=== PATIENT | female | born 1990 | race Hispanic/Latino ===

== ENCOUNTER 2018-06-03 10:33 | Emergency (ER) | payer OTHER ==
[2018-06-03 12:00] LABS: BASO % 0.3 % (0.0-1.0); EOS % 0.4 % (0.0-3.0); HEMATOCRIT 42.3 % (36.0-47.0); HEMOGLOBIN 14.9 g/dl (12.0-15.5); IMMATURE GRANULOCYTE % 0.2 % (0-3.0); LYMPH # 2.3 10^3/uL (1.5-6.5); LYMPH % 25.8 % (24.0-44.0); MEAN CORPUSCULAR HEMOGLOBIN 30.3 pg (27.0-33.0); MEAN CORPUSCULAR HGB CONC 35.2 g/dl (32.0-36.5); MEAN CORPUSCULAR VOLUME 86.2 fl (80.0-96.0); MONO # 0.3 10^3/uL (0.0-0.8); MONO % 3.4 % (0.0-5.0); NEUTROPHILS # 6.3 10^3/uL (1.8-7.7); NEUTROPHILS % 69.9 % (36.0-66.0); PLATELET COUNT, AUTOMATED 245 10^3/uL (150-450); RED BLOOD COUNT 4.91 10^6/uL (4.00-5.40)
[2018-06-03 12:13] LABS: D-DIMER QUANT 404.7 ng/ml (<500)
[2018-06-03 12:35] LABS: ANION GAP 9 MEQ/L (8-16); BLOOD UREA NITROGEN 7 MG/DL (7-18); CALCIUM LEVEL 9.2 MG/DL (8.5-10.1); CARBON DIOXIDE LEVEL 26 MEQ/L (21-32); CHLORIDE LEVEL 103 MEQ/L (98-107); CK-MB VALUE MASS < 1.0 NG/ML (<3.6); CPK CREATINE PHOSPHOKINASE 62 U/L (26-192); CREATININE FOR GFR 0.68 MG/DL (0.55-1.30); GLOMERULAR FILTRATION RATE > 60.0 (>60); GLUCOSE, FASTING 307 MG/DL (70-100); MB/CK RELATIVE INDEX 1.61 (< OR =4); POTASSIUM SERUM 4.4 MEQ/L (3.5-5.1); SODIUM LEVEL 138 MEQ/L (136-145); TROPONIN I < 0.02 NG/ML (< 0.10)
== END 2018-06-03 13:40 | disposition home or self-care (01) ==
LOC: M ED 10:33
DX: M94.0 Chondrocostal junction syndrome [Tietze] (principal)
CPT/HCPCS: 71046

== ENCOUNTER → 2019-01-30 | Outpatient (CLI) | payer OTHER ==
[~2019-01-30] MED LIST: CETI10TA PO; NAPR-885 PO
[2019-01-30 13:00] LABS: BASO # 0.1 10^3/uL (0.0-0.2); BASO % 0.5 % (0.0-1.0); EOS # 0.1 10^3/uL (0.0-0.50); EOS % 1.3 % (0.0-3.0); HEMATOCRIT 43.1 % (36.0-47.0); HEMOGLOBIN 15.1 g/dl (12.0-15.5); LYMPH # 2.6 10^3/uL (1.5-4.5); LYMPH % 26.6 % (24.0-44.0); MEAN CORPUSCULAR HEMOGLOBIN 30.7 pg (27.0-33.0); MEAN CORPUSCULAR VOLUME 87.6 fl (80.0-96.0); MONO # 0.5 10^3/uL (0.0-0.8); MONO % 4.9 % (0.0-5.0); NEUTROPHILS # 6.6 10^3/uL (1.8-7.7); NEUTROPHILS % 66.4 % (36.0-66.0); PLATELET COUNT, AUTOMATED 248 10^3/uL (150-450); RED BLOOD COUNT 4.92 10^6/uL (4.00-5.40); WHITE BLOOD COUNT 9.9 10^3/uL (4.0-10.0)
[2019-01-30 13:43] LABS: ALBUMIN 3.5 GM/DL (3.2-5.2); ALT/SGPT 34 U/L (12-78); BILIRUBIN,TOTAL 0.5 MG/DL (0.2-1.0); BLOOD UREA NITROGEN 9 MG/DL (7-18); CALCIUM LEVEL 8.8 MG/DL (8.5-10.1); CARBON DIOXIDE LEVEL 24 MEQ/L (21-32); CHLORIDE LEVEL 101 MEQ/L (98-107); CREATININE FOR GFR 0.54 MG/DL (0.55-1.30); GLOMERULAR FILTRATION RATE > 60.0 (>60); GLUCOSE, FASTING 321 MG/DL (70-100); POTASSIUM SERUM 4.4 MEQ/L (3.5-5.1); SODIUM LEVEL 137 MEQ/L (136-145); TOTAL PROTEIN 7.3 GM/DL (6.4-8.2)
[2019-02-01 00:06] LABS: EBV AB TO NUCLEAR ANTIGEN >600.0 U/mL (0.0-17.9); EBV VIRAL CAPSID AG IgM <36.0 U/mL (0.0-35.9); Lyme Disease IgG/IgM Antibodie <0.91 ISR (0.00-0.90); Lyme Disease IgM Ab Quantitati <0.80 index (0.00-0.79)
== END ==
LOC: M WUC 10:18
PROVIDERS: ATTEND Physician Assistant
DX: J02.9 Acute pharyngitis, unspecified (principal); R53.81 Other malaise